=== PATIENT | female | born 1945 | race Caucasian/White ===

== ENCOUNTER → 2022-02-17 | Outpatient (CLI) | payer MEDICARE ==
--- NOTE | 2022-02-17 11:45 | US ---
EXAMINATION TYPE: US kidneys/renal and bladder DATE OF EXAM: 02/17/2022 COMPARISON: NONE CLINICAL HISTORY: N18.2 CHR KIDNEY DISEASE STAGE 2. CKD EXAM MEASUREMENTS: Right Kidney: 10.2 x 4.4 x 4.3 cm Left Kidney: 10.1 x 4.2 x 4.9 cm Right Kidney: No hydronephrosis or masses seen Left Kidney: No hydronephrosis or masses seen Bladder: wnl Bilateral Jets seen: Yes IMPRESSION: 1. Normal renal ultrasound
== END | disposition home or self-care (01) ==
LOC: RADUSWWP 10:50
PROVIDERS: ATTEND Internal Medicine
DX: N18.2 Chronic kidney disease, stage 2 (mild) (principal)
CPT/HCPCS: 76770

== ENCOUNTER → 2022-06-06 | Outpatient (CLI) | payer MEDICARE ==
--- NOTE | 2022-06-06 22:21 | MR ---
EXAMINATION TYPE: MR angio head/neck wo con DATE OF EXAM: 06/06/2022 COMPARISON: None HISTORY: Family hx aneurysm TECHNIQUE: Time of flight images focusing on the [place] were performed without contrast.. 2-D and 3-D postprocessing imaging is performed. [place]o-ad-sbbcca images with three-dimensional postprocessing performed to the neck also on an [email or web address] workstation and reviewed FINDINGS: MRA brain: The left vertebral artery is dominant. There is no evident aneurysm, stenosis, d issection, or embolus. 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 Common carotid, internal and external carotid arteries are patent. No evident hemodynamic significant stenosis of the proximal internal carotid arteries by NASCET criteria. Left vertebral artery is dominant. IMPRESSION: Unremarkable MRA of the neck
== END | disposition home or self-care (01) ==
LOC: RADMRIMAIN 15:06
PROVIDERS: ATTEND Internal Medicine
DX: Q04.9 Congenital malformation of brain, unspecified (principal); Z82.49 Family history of ischemic heart disease and other diseases of the circulatory system
CPT/HCPCS: 70544; 70547

== ENCOUNTER → 2024-07-28 | Outpatient (CLI) | payer MEDICARE ==
--- NOTE | 2024-07-28 13:14 | XR ---
EXAMINATION TYPE: XR chest 2V DATE OF EXAM: 07/28/2024 12:59 PM COMPARISON: None TECHNIQUE: XR chest 2V Frontal and lateral views of the chest. CLINICAL INDICATION:Female, 78 years old with history of J18.9 XR PNEUMONIA OF RH LOWER LOBE; FINDINGS: Lungs/Pleura: No pleural effusion or pneumothorax. There is some patchy subtle airspace opacities wit hin the right lower lung only on the frontal view. Pulmonary vascularity: Unremarkable. Heart/mediastinum: Cardiomediastinal silhouette is unremarkable. Atherosclerotic calcifications are seen in the aorta. Musculoskeletal: Multiple level degenerative disc disease changes seen throughout the spine. IMPRESSION: Subtle patchy airspace opacities within the right lower lung only on the frontal view which may repre sent atelectasis versus pneumonia in the appropriate clinical setting. [facility], , 07/28/2024 1:12 PM
== END | disposition home or self-care (01) ==
LOC: RADXRMAIN 12:24
PROVIDERS: ATTEND Internal Medicine
DX: J18.9 Pneumonia, unspecified organism (principal); I70.0 Atherosclerosis of aorta
CPT/HCPCS: 71046